=== PATIENT | male | born 1990 | race Caucasian/White ===

== ENCOUNTER 2018-10-29 04:12 | Inpatient (IN) ==
[2018-10-29] MEDS ORDERED: Bisacodyl 10 MG Supp RECTAL PRN (06:46)
[2018-10-29] MEDS ORDERED: Acetaminophen 325 MG Tablet PO PRN (06:46)
[2018-10-29] MEDS ORDERED: Morphine Inj 4 MG/ML Vial IV.PUSH PRN (06:49)
[2018-10-29] MEDS: Sod Chloride 0.9% Inj 1,000 ML IV.CONT SCH ×2 (07:42→18:32)
[2018-10-29] MEDS ORDERED: Chlorhexidine Gluconate 0.12% Liq 15 ML UDC ONE (09:00)
[2018-10-29 09:04] LABS: Baso % (Auto) 0.3 % (0.0-2.0); Eos % (Auto) 0.1 % (0.0-4.0); Hematocrit 41.2 % (39.0-51.0); Hemoglobin 14.5 gm/dL (13.0-17.0); Lymph # (Auto) 1.2 th/mm3 (1.0-4.8); Lymph % (Auto) 7.4 % (9.0-44.0); Mean Corpuscular HGB Conc 35.1 % (32.0-36.0); Mean Corpuscular Volume 94.1 fL (80.0-100.0); Mean Platelet Volume 7.2 fL (7.0-11.0); Mono # (Auto) 1.4 th/mm3 (0.0-0.9); Mono % (Auto) 8.5 % (0.0-8.0); Neut # (Auto) 13.6 th/mm3 (1.8-7.7); Neut % (Auto) 83.7 % (16.0-70.0); Platelet Count 290 th/mm3 (150-450); Red Blood Count 4.38 mil/mm3 (4.50-5.90); Red Cell Distribution Width 12.8 % (11.6-17.2); White Blood Count 16.3 th/mm3 (4.0-11.0)
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
[2018-10-29 09:30] LABS: Anion Gap 7 meq/L (5-15); Blood Urea Nitrogen 6 mg/dL (7-18); Calcium 8.2 mg/dL (8.5-10.1); Carbon Dioxide 23.5 meq/L (21.0-32.0); Chloride 110 meq/L (98-107); Glomerular Filtration Rate Greater Than 89 mL/min (>89); Glucose,Random 103 mg/dL (74-106); Potassium 3.9 meq/L (3.5-5.1); Sodium 140 meq/L (136-145)
[2018-10-29] MEDS ORDERED: Metoprolol Tartrate 25 MG Tablet PO ONE (09:55)
[2018-10-29] MEDS ORDERED: Chlorhexidine Gluconate 2% 1 Pack (2 Cloths) TOPICAL ONE (09:55)
[2018-10-29] MEDS ORDERED: Sodium Chlor 0.9% Inj 500 ML IV.SIG ONE (10:00)
[2018-10-29] MEDS ORDERED: ceFAZolin 1 GM Premix Inj 2 GM/100 ML FROZ.PIGGY IV.SIG ONE (10:21)
[2018-10-29] MEDS ORDERED: Lidocaine 2%/Epinephrine 1:100,000 30 ML MDV ONE (10:23)
[2018-10-29] MEDS ORDERED: Bupivacaine/Epinephrine Inj 0.25% 50 ML Vial ONE (11:40)
--- NOTE | 2018-10-29 12:50 | MB ---
cc: Luiz Medina DMD DATE: 10/29/2018 ADDENDUM VITAL SIGNS: Temperature 98 degrees Fahrenheit, pulse 103, respiratory rate 18, blood pressure is 124/76, oxygen saturation of 97%. Additionally, the other fracture that is noted, which is not significantly displaced, although posteriorly towards the base of the skull medial to the condyle, no surgical intervention is needed from my standpoint at this time. Luiz Medina DMD RT/te/pamella , 09:31 AM , 09:36 AM
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
[2018-10-29] MEDS ORDERED: fentaNYL Citrate Inj 100 MCG/2 ML Ampul ONE (13:24)
[2018-10-29] MEDS ORDERED: Morphine Inj 4 MG/ML Vial ONE (13:24)
[2018-10-29] MEDS ORDERED: Hydrocortisone Sod Succinate 250 MG Vial ONE (13:26)
[2018-10-29] MEDS: MethylPREDNISolone Sod Succinate Inj 125 MG/2 ML Vial IV.PUSH SCH ×2 (13:30→20:06)
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
[2018-10-29] MEDS: Acetaminophen-HYDROcodone 325/7.5 Liq 15 ML UDC PO PRN ×2 (17:10→23:00)
[2018-10-29] MEDS: ceFAZolin 1 GM Premix Inj 1 GM/50 ML FROZ.PIGGY IV.SIG SCH (19:06)
[2018-10-29] MEDS: Morphine Sulfate Inj 2 MG/ML Vial IV.PUSH PRN (20:07)
[2018-10-29] MEDS ORDERED: Influenza (Quadrivalent) Vaccine 0.5 ML Syringe IM ONE (21:00)
[2018-10-30] MEDS: Morphine Sulfate Inj 2 MG/ML Vial IV.PUSH PRN ×2 (02:09→08:45)
[2018-10-30] MEDS: ceFAZolin 1 GM Premix Inj 1 GM/50 ML FROZ.PIGGY IV.SIG SCH (02:09)
[2018-10-30] MEDS: Sod Chloride 0.9% Inj 1,000 ML IV.CONT SCH (03:00)
[2018-10-30] MEDS: Acetaminophen-HYDROcodone 325/7.5 Liq 15 ML UDC PO PRN ×2 (05:15→12:10)
[2018-10-30 06:23] LABS: Baso % (Auto) 0.1 % (0.0-2.0); Hematocrit 39.2 % (39.0-51.0); Lymph # (Auto) 0.9 th/mm3 (1.0-4.8); Lymph % (Auto) 7.1 % (9.0-44.0); Mean Corpuscular HGB Conc 33.2 % (32.0-36.0); Mean Corpuscular Hemoglobin 32.3 pg (27.0-34.0); Mean Corpuscular Volume 97.3 fL (80.0-100.0); Mean Platelet Volume 7.6 fL (7.0-11.0); Mono # (Auto) 1.2 th/mm3 (0.0-0.9); Mono % (Auto) 9.4 % (0.0-8.0); Neut # (Auto) 10.6 th/mm3 (1.8-7.7); Neut % (Auto) 83.4 % (16.0-70.0); Platelet Count 271 th/mm3 (150-450); Red Blood Count 4.03 mil/mm3 (4.50-5.90); Red Cell Distribution Width 12.6 % (11.6-17.2); White Blood Count 12.7 th/mm3 (4.0-11.0)
[2018-10-30 06:49] LABS: Anion Gap 6 meq/L (5-15); Blood Urea Nitrogen 9 mg/dL (7-18); Calcium 8.2 mg/dL (8.5-10.1); Carbon Dioxide 27.9 meq/L (21.0-32.0); Chloride 106 meq/L (98-107); Glomerular Filtration Rate Greater Than 89 mL/min (>89); Glucose,Random 143 mg/dL (74-106); Potassium 4.2 meq/L (3.5-5.1); Sodium 140 meq/L (136-145)
--- NOTE | 2018-10-30 08:24 | P.PN ---
Subjective Interval history: POD 1 s/o orif left mandible fracture/ closed reduction right subcondylar fracture with elastics pt seen and examined this morning, pt's nurse at bedside, aaox3, nad no complaints, tolerating po well denies f/c/n/v/sob/difficulty breathing/swallowing Physical Exam Vital signs: Vital Signs 10/29/18 13:15 10/29/18 13:30 10/29/18 13:45 Temperature 97.5 F L 97.3 F L Pulse Rate 94 H 86 90 Respiratory Rate 14 16 15 Blood Pressure 121/76 117/68 118/72 Pulse Oximetry 99 99 99 10/29/18 14:00 10/29/18 16:00 10/29/18 19:46 Temperature 99.2 F 97.9 F Pulse Rate 101 H 85 Respiratory Rate 15 18 18 Blood Pressure 106/56 L 118/58 L Pulse Oximetry 97 97 10/29/18 20:09 10/29/18 23:05 10/29/18 23:30 Temperature 97.9 F Pulse Rate 91 H Respiratory Rate 18 18 18 Blood Pressure 109/67 Pulse Oximetry 97 10/30/18 02:11 10/30/18 03:50 10/30/18 05:45 Temperature 97.6 F Pulse Rate 65 Respiratory Rate 18 18 18 Blood Pressure 113/57 L Pulse Oximetry 97 Intake & Output 10/29/18 10/30/18 10/30/18 18:59 06:59 18:59 Intake Total 2600 / 2600 340 / 340 Output Total 30 / 30 Balance 2570 / 2570 340 / 340 Weight 72.2 kg Intake: IV 1100 / 1100 100 / 100 NS Inj 1,000 ML @ 100 mls/hr IV 1000 / 1000 .CONT .Q10H [facility] Rx#:[id number] Ancef 1 GM Premix Inj 1 gm In 100 / 100 100 / 100 50 ml @ 100 mls/hr IV.SIG Q8H [facility] Rx#:[id number] Oral 240 / 240 Anesthesia Amount 1500 / 1500 Output: Estimated Blood Loss 30 / 30 Other: # Voids 4 Date of Last Bowel Movement 10/28/18 # Bowel Movements 0 - Constitutional no acute distress - Routine HEENT Exam Head: Present: normocephalic - Detailed ENT Exam Oral mucosa: Present: moist Tongue: Absent: elevation Comments: mild left facial edema trach midline bite in occlusion arch bars/elastics in place tissues pink/well perfused wound margins well approximated/sutures intact no signs of infection/bleeding pus/edema continued residual left v3 paraesthesia left nasal packing in place- hemostatic wire puller/elastics at bedside Results - Labs CBC & Chem 7: 10/30/18 05:44 10/30/18 05:44 Laboratory Results - last 24 hr 10/29/18 10/29/18 10/30/18 08:45 08:45 05:44 WBC 16.3 H 12.7 H RBC 4.38 L 4.03 L Hgb 14.5 13.0 Hct 41.2 39.2 MCV 94.1 97.3 MCH 33.0 32.3 MCHC 35.1 33.2 RDW 12.8 12.6 Plt Count 290 271 MPV 7.2 7.6 Neut % (Auto) 83.7 H 83.4 H Lymph % (Auto) 7.4 L 7.1 L Borden % (Auto) 8.5 H 9.4 H Eos % (Auto) 0.1 0.0 Baso % (Auto) 0.3 0.1 Neut # (Auto) 13.6 H 10.6 H Lymph # (Auto) 1.2 0.9 L Borden # (Auto) 1.4 H 1.2 H Eos # (Auto) 0.0 0.0 Baso # (Auto) 0.0 0.0 WBC Differential . . Differential Comment Auto diff final Auto diff final Sodium 140 Potassium 3.9 Chloride 110 H Carbon Dioxide 23.5 Anion Gap 7 BUN 6 L Creatinine 0.75 Estimated GFR Greater than 89 Random Glucose 103 Calcium 8.2 L 10/30/18 05:44 WBC RBC Hgb Hct MCV MCH MCHC RDW Plt Count MPV Neut % (Auto) Lymph % (Auto) Borden % (Auto) Eos % (Auto) Baso % (Auto) Neut # (Auto) Lymph # (Auto) Borden # (Auto) Eos # (Auto) Baso # (Auto) WBC Differential Differential Comment Sodium 140 Potassium 4.2 Chloride 106 Carbon Dioxide 27.9 Anion Gap 6 BUN 9 Creatinine 0.73 Estimated GFR Greater than 89 Random Glucose 143 H Calcium 8.2 L Assessment and Plan - Assessment (1) Fracture of body of mandible Code(s): S02.600A - Fracture of unspecified part of body of mandible, unspecified side, initial encounter for closed fracture Status: Acute (2) Subcondylar fracture of right side of mandible Code(s): S02.621A - Fracture of subcondylar process of right mandible, initial encounter for closed fracture Status: Acute - Plan POD 1 s/o orif left mandible fracture/ closed reduction right subcondylar fracture with elastics ok to d/c to home from oms standpoint f/up dr Medina TuesdayNovember 03 - call [phone] full liquid diet- no drinking with straw no strenuous activity/work send pt home with elastics- wire cutters( for emergency airway management) maintain good oral hygiene
[2018-10-30 09:31] VITALS: RESP 16
[2018-10-30 13:29] VITALS: BP 104/67; PULSE 76; TEMP 97.1; O2SAT 98
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
== END 2018-10-30 14:34 | disposition home or self-care (01) ==
LOC: EDBD → NEPHCDU 06:09 → N06 11:05
PROVIDERS: ADMIT Internal Medicine; ATTEND Internal Medicine
PROC: ORIFMAN (2018-10-29 10:31)
PROC: [UNRECOGNIZED PROCEDURE] (2018-10-29 10:31)
DX: S02.602A Fracture of unspecified part of body of left mandible, initial encounter for closed fracture; D72.829 Elevated white blood cell count, unspecified; Y04.0XXA Assault by unarmed brawl or fight, initial encounter; Z23 Encounter for immunization; S02.611A Fracture of condylar process of right mandible, initial encounter for closed fracture